=== PATIENT | male | born 1940 | race Caucasian/White ===

== ENCOUNTER 2016-09-12 07:51 | Outpatient (CLI) | payer MEDICARE, OTHER ==
[~2016-09-12] VITALS: Ht 190.5 cm; Wt 129.1 kg
--- NOTE | ~2016-09-12 | HEMODYNAMI ---
PATIENT:YOLY MACKEY MEDICAL RECORD: [id number] : 40 LOCATION:DDAISY ADMISSION DATE: 09/12/16 Generatedon:09/12/201610:50 Patient name: YOLY MACKEY Patient #: [id number] SSN: : 1940 Date of study: 09/12/2016 Page: Of Hemodynamic Procedure Report Patient Data Patient Demographics Procedure consent was obtained First Name: YOLY Gender: Male Last Name: NARENDRA : 1940 Patient #: [id number] Age: 76 year(s) Race: Unknown Additional ID: [id number] Contact details [address]: [address] [place] [address] State: [place] City: [place] Zip code: [address] Past Medical History Allergies: No known allergies Admission Admission Data Admission Date: 09/12/2016 Admission Time: 7:51 Lab Results Lab Result Date: 09/12/2016 Lab Result Time: 0:00 Biochemistry Name Units Result Min Max CK-MB ng/ml 2.7 --(---*)-- 0 3.6 Creatinine mg/dl 0.8 --(-*--)-- 0.6 1.3 Creatinine l 128 --(--*-)-- 21 215 Kinase Troponin l ng/ml 0.017 --(-*--)-- 0 0.06 CBC Name Units Result Min Max Hematocrit % 40.7 -*(----)-- 42 54 Hemoglobin g/dl 13.3 -*(----)-- 13.5 17.5 Procedure Procedure Types Cath Procedure Diagnostic Procedure LHC [facility] w/Coronaries FFR/IVUS Intra-Coronary IVUS Initial PCI Procedure Coronary Stent Initial Miscellaneous Procedures Moderate Sedation up to 30 minutes Procedure Description Procedure Date Procedure Date: 09/12/2016 Procedure Start Time: 10:25 Procedure End Time: 10:50 Procedure Staff Name Function Mario Palacio MD Performing Physician Shawn Martino RT Scrub Lennie Vásquez RN Nurse Paty Al RT Monitor Chepe Thurman RN Child Care Provider Procedure Data Cath Procedure Fluoroscopy Diagnostic fluoroscopy Total fluoroscopy Time: 3.7 time: 3.7 min min Diagnostic fluoroscopy Total fluoroscopy dose: 926 dose: 926 mGy mGy Contrast Material Contrast Material Type Amount (ml) Isovue 300 106 Entry Location Entry Primary Successful Side Size Upsize Upsize Entry Closure Succes sful Closure Location (Fr) 1 (Fr) 2 (Fr) Remarks Device Remarks Femoral Right 5 Fr 6 Fr Exoseal artery Short Estimated blood loss: 10 ml Diagnostic catheters Device Type Used For End Catheter Placement Cordis 5Fr Pigtail LV Angiography Catheter (MP) Cordis 5Fr JL 4.0 Left Coronary Catheter (MP) Angiography Cordis 5Fr 3DRC Catheter Right Coronary (MP) Angiography Procedure Complications No complications Procedure Medications Medication Administration Route Dosage Oxygen NC 2 l/min Lidocaine 2% added to field 20 Heparin Flush Bag added to field 2 bags (1000units/500ml NS) 0.9% NaCl I.V. 100 ml/hr Versed I.V. 1 mg Fentanyl I.V. 50 mcg Versed I.V. 1 mg Fentanyl I.V. 50 mcg Heparin Bolus I.V. 4000 units Hemodynamics Rest HGB: 13.3 (g/dl) Heart Rate: 52 (bpm) Snapshots Pre Cath Intra NCS Post Cath Vital Signs Time Heart Resp SPO2 NIBP (mmHg) Rhythm Pain Sedation Rate (ipm) (%) Status Level (bpm) 10:08:35 46 16 97 135/72(100) SB 0 (11) 10(A) , No pain 10:12:59 47 15 98 114/56(105) SB 0 (11) 10(A) , No pain 10:17:14 43 16 97 98/56(83) SB 0 (11) 10(A) , No pain 10:21:23 44 17 97 105/55(85) NSR 0 (11) 10(A) , No pain 10:25:31 41 16 94 94/62(79) NSR 0 (11) 9(A) , No pain 10:30:32 51 15 96 105/59(83) NSR 0 (11) 9(A) , No pain 10:34:36 46 15 98 106/60(79) NSR 0 (11) 9(A) , No pain 10:38:46 44 16 96 99/58(80) NSR 0 (11) 9(A) , No pain 10:42:56 47 17 98 111/55(84) NSR 0 (11) 10(A) , No pain 10:47:06 45 15 99 112/67(82) NSR 0 (11) 10(A) , No pain Medications Time Medication Route Dose Verified Delivered Reason Notes Effectiveness by by 10:07:20 Oxygen NC 2 Mario Buffie used for l/min Pia Vásquez RN procedure 10:07:27 Lidocaine 2% added 20ml Mario Mario for local to vial Pia Palacio MD anesthetic field 10:07:33 Heparin Flush added 2 Mario Mario used for Bag to bags Pia Palacio MD procedure (1000units/500ml field NS) 10:07:43 0.9% NaCl I.V. 100 Mario Buffie Per physician ml/hr Pia Vásquez RN 10:23:37 Versed I.V. 1 mg Mario Hogue for sedation Pia Vásquez RN 10:23:43 Fentanyl I.V. 50 Mario Buffie for sedation mcg Pia Vásquez RN 10:29:54 Versed I.V. 1 mg Mario Buffie for sedation Pia Vásquez RN 10:29:59 Fentanyl I.V. 50 Mario Perezie for sedation mcg Pia Vásquez RN 10:32:28 Heparin Bolus I.V. 4000 Marioamanuel Perezie for verifi ed units Pia Vásquez RN anticoagulation with dr palacio Procedure Log Time Note 9:52:07 Informed consent obtained and on chart 9:52:29 Diagnostic Cath status Elective 9:52:31 Time tracking: Regular hours 9:52:34 Plan of Care:Hemodynamics will remain stable., Cardiac rhythm will remain stable., Comfort level will be maintained., Respiratory function will remain adequate., Patient/ family verbilizes understanding of procedure., Procedure tolerated without complication., Recovers from procedure without complications.. 9:52:44 H&P Date Dictated: 09/12/2016 Within 30 days and on chart., H&P Addendum completed by physician on day of procedure. (MUST COMPLETE FOR ALL OUTPATIENTS). 9:53:46 Chepe Thurman RN sent for patient. Start room use. 9:57:30 Patient received from Pre/Post Procedure Room to CCL 2 Alert and oriented. Tansferred to table in Supine position. 9:57:31 Warm blankets applied, and migel hugger turned on for patient comfort. 9:57:31 Correct patient and procedure confirmed by team. 9:57:33 ECG and BP/O2 sat monitors applied to patient. 9:57:36 Full Disclosure recording started 10:07:20 Oxygen 2 l/min NC was administered by Lennie Vásquez RN; used for procedure; 10:07:25 Vital chart was started 10:07:27 Lidocaine 2% 20ml vial added to field was administered by Mario Palacio MD; for local anesthetic; 10:07:29 Rhythm: sinus bradycardia 10:07:31 Pre-procedure instructions explained to patient. 10:07:31 Pre-op teaching completed and patient verbalized understanding. 10:07:33 Heparin Flush Bag (1000units/500ml NS) 2 bags added to field was administered by Mario Palacio MD; used for procedure; 10:07:35 Family in patients room. 10:07:36 Patient NPO since Midnight. 10:07:43 0.9% NaCl 100 ml/hr I.V. was administered by Lennie Vásquez RN; Per physician; 10:09:14 Patient allergic to No known allergies 10:09:17 Is the patient allergic to Iodine/contrast media? No. 10:09:18 Is patient on blood thinner?Yes 10:09:37 ACC The patient was administered the following blood thiners within the last 24 hours: ACCPlavix 10:09:38 Patient diabetic? Yes. 10:09:39 If diabetic: On Metformin? Yes 10:09:41 If on Metformin: Last Dose? 09/10/2016 10:09:44 Previous problem with sedation/anesthesia? No ? 10:09:45 Snore? Yes 10:09:47 Sleep apnea? Yes 10:09:47 Deviated septum? No 10:09:48 Opens mouth fully? Yes 10:09:48 Sticks out tongue? Yes 10:09:50 Airway obstruction? No ? 10:09:53 Dentures? No ? 10:09:55 Pre procedure: right dorsailis pedis pulse 1+ Palpable, but thready & weak; easily obliterated 10:10:06 Pre procedure: right radial pulse 1+ Palpable, but thready & weak; easily obliterated 10:10:10 Patient pain scale 0/10 ?. 10:10:16 IV patent on arrival in left hand with 0.9% NaCl at [facility]. 10:11: Lab Result : Creatinine 0.8 mg/dl 10:11: Lab Result : Creatinine Kinase 128 l 10:11: Lab Result : CK-MB 2.7 ng/ml 10:11: Lab Result : Troponin l 0.017 ng/ml 10:: Lab Result : Hemoglobin 13.3 g/dl 10:11: Lab Result : Hematocrit 40.7 % 10:11:07 Lab results completed and on chart. 10:11:09 Right groin area was prepped with chlora-prep and draped in sterile fashion 10:11:10 Alarms reviewed by R. N. 10:11:13 Sharps counted by scrub and verified by R.N. 10:11:16 Use device set Femoral Dx 10:11:17 Acist Syringe opened to sterile field. 10:11:18 Bag Decanter opened to sterile field. 10:11:18 Medline Cath Pack opened to sterile field. 10:11:19 Terumo 5Fr [place] Sheath opened to sterile field. 10:11:19 St Jovi 260cm J .035 wire opened to sterile field. 10:11:20 Acist Hand Control opened to sterile field. 10:11:21 Acist Manifold opened to sterile field. 10:11:21 Diagnostic Infinity 5Fr Multipack catheter opened to sterile field. 10:11:22 Tegaderm 4 x 4 opened to sterile field. 10:14:04 Baseline sample Acquired. 10:14:44 Physician paged 10:22:00 Final Timeout: patient, procedure, and site verified with staff and physician. All members of the team are in agreement. 10:22:02 Right groin site verified by team. 10:22:05 Physical assessment completed. ASA score P 2 - A patient with mild systemic disease as per Mario Palacio MD. 10:22:08 Sedation plan: IV Moderate Sedation Versed, Fentanyl 10::37 Versed 1 mg I.V. was administered by Lennie Vásquez RN; for sedation; 10::43 Fentanyl 50 mcg I.V. was administered by Lennie Vásquez RN; for sedation; :25:37 Procedure started. 10:25:40 Local anesthetic to right femoral artery with Lidocaine 2% by Mario Palacio MD.INITIAL ACCESS ONLY 10:25:56 A 5 Fr sheath was inserted into the Right Femoral artery 10::38 A Cordis 5Fr Pigtail Catheter (MP) was advanced over the wire and used for LV Angiography. 10:27:16 LV gram done using DIALLO 10:27:20 EF : 30 % 10::23 Injector settings: Ml/sec: 10, Volume: 20, 10:27:25 Catheter removed. 10:27:52 A Cordis 5Fr JL 4.0 Catheter (MP) was advanced over the wire and used for Left Coronary Angiography. 10:29:14 Catheter removed. 10::25 A Cordis 5Fr 3DRC Catheter (MP) was advanced over the wire and used for Right Coronary Angiography. 10:29:54 Versed 1 mg I.V. was administered by Lennie Vásquez RN; for sedation; 10:29:59 Fentanyl 50 mcg I.V. was administered by Lennie Vásquez RN; for sedation; 10:30:31 Terumo 6Fr [place] Sheath opened to sterile field. 10:30:32 Carrera Whisper J 300cm 0.014 guide wire opened to sterile field. 10:30:32 29West BasixCompak Inflation Kit opened to sterile field. 10:30:49 Sheath upsized to a 6 Fr Short. 10:31:06 [place] Eagleye IVUS Catheter opened to sterile field. 10:31:33 Cordis 6FR XBLAD 4.0 guide catheter opened to sterile field. 10:31:56 6 Fr XBLAD 4.0 guide catheter was inserted over the wire 10:32:28 Heparin Bolus 4000 units I.V. was administered by Lennie Vásquez RN; for anticoagulation; verified with dr palacio 10:32:29 Whisper wire advanced. 10:33:52 IVUS catheter advanced over wire. 10:35:07 IVUS pass to LAD lesion performed. 10:35:08 IVUS catheter removed over wire. 10:41:39 Inflation Number: 1 A Biofreedom 3.0 x 14 stent (No Cost Implant) was prepped and advanced across the Mid LAD. The stent was deployed at 11 JODI for 0:06 (min:sec). 10:42:01 Stent catheter was removed intact over wire. 10:42:02 Wire removed. 10:42:02 Guide catheter removed. 10:42:11 Sheath removed intact; hemostasis achieved with Exoseal to the Right Femoral artery. 10:42:13 Procedure ended.(Physican Out) 10:42:26 Fluoroscopy time 03.70 minutes. 10:42:30 Fluoroscopy dose: 926 mGy 10:42:30 Flurop Dose total: 926 10:42:45 Contrast amount:Isovue 300 106ml. 10:42:47 Sharps counted by scrub and verified by R.N. 10:42:48 Insertion/operative site no bleeding no hematoma. 10:42:51 Post-op/insertion site Right Femoral artery dressed using a 4 x 4 and Tegaderm. 10:42:55 Post right femoral artery:stable, clean and dry 10:42:56 Post Procedure Pulses reassessed and unchanged 10:43:00 Post-procedure physical assessment completed. ASA score P 2 - A patient with mild systemic disease as per Mario Palacio MD. 10:43:02 Post procedure rhythm: unchanged. 10:43:04 Estimated blood loss: 10 ml 10:43:05 Post procedure instruction explained to patient.Patient verbalizes understanding. 10:43:06 Patient needs reinforcement of post procedure teaching. 10:43:25 Procedure type changed to Cath procedure, Diagnostic procedure, LHC, LHC w/Coronaries, FFR/IVUS, Intra-Coronary IVUS Initial, PCI procedure, Coronary Stent Initial, Miscellaneous Procedures, Moderate Sedation up to 30 minutes 10:43:28 Procedure and supply charges have been captured, reviewed, submitted and are correct. 10:43:34 Procedure Complication : No complications 10:43:37 See physician's report for complete and final results. 10:44:22 Cordis 6Fr Exoseal opened to sterile field. 10:49:48 Vital chart was stopped 10:49:51 Report given to Pre/Post Procedure Room. 10:49:55 Patient transfered to Pre/Post Procedure Room with Stretcher. 10:50:07 Procedure ended. 10:50:07 Full Disclosure recording stopped 10:50:11 End room use (Document Last) Intervention Summary Intervention Notes Time ActionType Lesion and Equipment Action# Pressure Duration Attributes Used 10:41:39 Place stent Mid LAD Biofreedom 1 11 00:06 3.0 x 14 stent (No Cost Implant) Device Usage Item Name Manufacture Quantity Catalog Hospital Part Current Minimal Lot# / Number Charge Number Stock Stock Serial# Code Acist Acist 1 05587 [id number] 207952 343298 20 Syringe Medical Systems Inc Bag Microtek 1 2002S 378267 08244 364638 5 Decanter Medical Inc. Medline Cardinal 1 [id number] 608971 47968 732056 5 Cath Pack Health Terumo 5Fr Terumo 1 [id number] 619330 026124 113844 [address] Jovi 1 011186 264682 491892 191277 30 260cm J .035 wire Acist Hand Acist 1 57022 225614 032860 703141 5 Control Medical Systems Inc Acist Acist 1 21143 818493 787404 581995 5 Manifold Medical Systems Inc Diagnostic Cardinal 1 [id number] 065712 92816 560097 30 Infinity Health 5Fr Multipack catheter Tegaderm 4 3M 1 1626W 211588 767513 301337 5 x 4 Cordis 5Fr Cardinal 1 199322 5 Pigtail Health Catheter (MP) Cordis 5Fr Cardinal 1 020479 5 JL 4.0 Health Catheter (MP) Cordis 5Fr Cardinal 1 835852 5 3DRC Health Catheter (MP) Terumo 6Fr Terumo 1 ONI775 232375 644429 224256 40 [place] Sheath Carrera Carrera 1 [id number] 053960 790576 669237 5 Whisper J Vascular 300cm 0.014 guide wire Merit Merit 1 EV7425 405373 365499 421756 15 Credit SesameflUdacity Medical Inflation Kit [place] 1 74616Y 614009 614783 812703 8 [place] Eagleye IVUS Catheter Cordis 6FR Cardinal 1 [id number] 020560 758353 232751 3 XBLAD 4.0 Health guide catheter Biofreedom Biosensors 1 [facility]2-3014 103758 722883 5 [id number] 3.0 x 14 [place] SA stent (No Cost Implant) Cordis 6Fr Cardinal 1 EX600 060999 739627 160313 10 [facility] Health Signature Audit [place] Stage Time Signature Unsigned Intra-Procedure 09/12/2016 Paty 10:50:27 AM Counts RT(R) Signatures Monitor : Paty Signature : Counts RT Date : Time : [address] [place] [address]
[2016-09-12] MEDS ORDERED: PLAVIX75 MG PO (08:08)
[2016-09-12] MEDS ORDERED: GLUCOPHAGE500 MG PO (08:12)
[2016-09-12] MEDS ORDERED: LISINOPRIL10 MG PO (08:13)
[2016-09-12] MEDS ORDERED: MOBIC7.5 MG PO (08:13)
[2016-09-12] MEDS ORDERED: VERELAN180 MG PO (08:13)
[2016-09-12] MEDS ORDERED: BAYER CHEWABLE81 MG PO (08:14)
[2016-09-12] MEDS ORDERED: LOVASTATIN40 MG PO (08:14)
[2016-09-12 08:15] VITALS: BP 137/61; Ht 190.5 cm; Wt 129.1 kg
[2016-09-12 08:36] LABS: BASOPHILS 0.1 % (0-2); EOSINOPHILS 2.2 % (0-7); HEMATOCRIT 40.7 % (42.0-54.0); HEMOGLOBIN 13.3 g/dL (13.5-17.5); IMMATURE GRANULOCYTES 0.1 % (0-5); LYMPHOCYTES 27.8 % (15-50); MCH 29.4 pg (26.0-34.0); MCHC 32.7 g/dL (31.0-37.0); MONOCYTES 9.6 % (2-11); NEUTROPHILS 60.2 % (40-80); PLATELET COUNT 232 10x3/uL (130-400); RBC 4.52 10x6/uL (4.20-6.10); RDW 14.1 % (11.5-14.5); WBC 7.4 10x3/uL (4.8-10.8)
[2016-09-12 09:08] LABS: CALC OSMOLALITY 280 mosm/kg (275-300); CALCIUM 8.5 mg/dL (8.5-10.1); CARBON DIOXIDE 23.6 mmol/L (21.0-32.0); CHLORIDE - SERUM 105 mmol/L (98-107); CKMB 2.7 U/L (0.0-3.6); CREATINE KINASE 128 UL (21-232); CREATININE - SERUM 0.8 mg/dL (0.6-1.3); GLUCOSE 114 mg/dL (74-106); SODIUM 139 mmol/L (136-145); UREA NITROGEN 18 mg/dL (7-18); eGFR NON AFRICAN AMERICAN > 90 mL/min (90-120)
[2016-09-12 09:10] LABS: TROPONIN-I < 0.017 ng/mL (0.000-0.060)
--- NOTE | 2016-09-12 11:12 | NUR ---
1100 RECEIVED PT FROM INDEPENDENT CROP CONSULTANT. PT DENIES ANY C/O AT THIS TIME. DRESSING TO RIGHT GROIN IS CDI, NO BLEEDING OR HEMATOMA NOTED. AREA IS SOFT AND NONTENDER. PEDAL PULSES PALPALBLE, CAP REFILL IS BRISK. AT BEDSIDE, CALL LIGHT IN REACH.
--- NOTE | 2016-09-12 11:23 | NUR ---
1115 RIGHT GROIN REMAINS SOFT AND NONTENDER, DRESSING CDI. PEDAL PULSES PALPABLE. DENIES ANY C/O CHEST DISCOMFORT. AT BEDSIDE. PO FLUIDS SERVED.
--- NOTE | 2016-09-12 12:05 | NUR ---
1145 PT HAS TOLERATED PO FLUIDS AND SANDWICH WITH NO C/O. DRESSING CDI, DENIES ANY CHEST DISCOMFORT, CALL LIGHT IN REACH. 1205 DRESSING CDI, DENIES ANY CHEST DISCOMFORT, WILL CONTINUE TO MONITOR.
--- NOTE | 2016-09-12 12:21 | NUR ---
1220 RIGHT GROIN DRESSING IS CDI, AREA IS SOFT AND NONTENDER. PEDAL PULSES PALPABLE, PT DENIES NEEDS AT THIS TIME. CALL LIGHT IN REACH.
--- NOTE | 2016-09-12 13:06 | NUR ---
1300 PT DENIES ANY C/O DRESSING TO RIGHT GROIN IS CDI, AREA SOFT AND NONTENDER. PEDAL PULSES PALPABLE. AT BEDSIDE.
--- NOTE | 2016-09-12 14:26 | NUR ---
1400 VSS, SINUS BRADYCARDIA ON MONITOR,. DENIES ANY C/O CHEST DISCOMFORT, RIGHT GROIN DRESSING IS STABLE. AT BEDSIDE, CALL LIGHT IN REACH.
--- NOTE | 2016-09-12 14:55 | NUR ---
1440 HOB ELEVATED 45 DEGRESS, GROIN REMAINS STABLE. 1455 HOB UP TO 90 DEGREES, IV DC'D WITH CATH INTACT.
--- NOTE | 2016-09-12 15:02 | OP ---
PATIENT NAME: YOLY MACKEY MEDICAL RECORD: [id number] :40 LOCATION:D.CAT ADMISSION DATE: SURGEON: BILL BRANNON MD DATE OF OPERATION: 09/12/2016 PROCEDURES: 1. PTCA stent LAD. 2. Left heart catheterization. 3. Selective coronary angiography. 4. Left ventriculogram. 5. Intravascular ultrasound. PROCEDURE IN DETAIL: After informed consent was obtained and after a detailed explanation of the risks, benefits as well as alternative therapies, the patient elected to proceed with angiogram and angioplasty. The right femoral area was prepped and draped in normal sterile fashion. The right femoral artery was cannulated via modified Seldinger technique with placement of 6-Azeri sheath. All catheters exchanged through this sheath. FINDINGS: The left ventriculogram was performed in standard 30-degree DIALLO view, reveals good cardiac wall motion throughout all segments. Overall ejection fraction estimated 60%. SELECTIVE CORONARY ANGIOGRAPHY: 1. Left main showed no significant angiographic disease. 2. Left anterior descending has a 70% stenosis in the mid vessel confirmed by intravascular ultrasound. 3. Left circumflex has mild irregularities, but no flow-limiting stenosis. 4. Right coronary has mild irregularities, but no flow-limiting stenosis. PTCA STENT OF THE LAD: The stent used was a 3.0 x 15 mm BioFreedom. Result was 0% residual stenosis. OVERALL IMPRESSION: Successful percutaneous transluminal coronary angioplasty stent of the left anterior descending going from 70% initial stenosis confirmed by intravascular ultrasound to 0% residual stenosis. TRANSINT:[id number] Voice Confirmation ID: [id number] DOCUMENT ID: [id number] BILL BRANNON MD at 1502 CC: [id number] DICTATION DATE: 09/12/16 1107 AUTOMOBILE DRIVERS: 09/12/16 1400 REG [facility] [address] [place] [address]
--- NOTE | 2016-09-12 15:02 | HP ---
PATIENT: YOLY MACKEY MEDICAL RECORD: [id number] ACCOUNT: [id number] LOCATION:JOE : 40 ADMISSION DATE: 09/12/16 HISTORY AND PHYSICAL EXAMINATION DATE OF SERVICE: 09/12/2016 ADMITTING DIAGNOSES: 1. Angina. 2. Abnormal nuclear stress test. 3. Hypertension. 4. Hyperlipidemia. 5. Noninsulin-dependent diabetes. 6. Chronic NSAID use, meloxicam. HISTORY OF PRESENT ILLNESS: This is a gentleman with no previous cardiovascular history, began having chest pain, chest discomfort, underwent stress testing revealing severe reversibility. He is now brought for cardiac catheterization. No cardiovascular history. No history of malignancies, stroke or bleeding problems. He is on chronic NSAID therapy. PHYSICAL EXAMINATION: GENERAL APPEARANCE: Well-nourished, well-developed, appears stated age. Level of distress, comfortable. PSYCHIATRIC: Mental status, alert, normal affect. Orientation, oriented to time, place and person. EYES: Lids and conjunctiva, noninjected. No discharge, no pallor. ENT: Lips, teeth, gums, normal dentition. Oropharynx, no cyanosis, no pallor. NECK: Carotid arteries, bilateral normal upstroke, no bruits, no thrills. JUGULAR VEINS: No jugular venous pressure or distention. CERVICAL LYMPH NODES: Nontender, nonenlarged. THYROID: Not enlarged. Nontender. No nodules. LUNGS: Respiratory effort, unlabored. CHEST: Normal curvature. No thoracic deformity. No chest wall tenderness. Percussion, resonant. Auscultation, clear. No wheezes, no rales, no rhonchi. CARDIOVASCULAR: Precordial exam, nondisplaced. No heaves or pericardial thrills. Rate and rhythm, regular. Heart sounds, normal S1, normal S2. No S3, no gallop, no rub. Systolic murmur, not heard. Diastolic murmur, not heard. EXTREMITIES: No cyanosis, no edema. Peripheral pulses, full and equal in all extremities, except as noted. No bruits appreciated. ABDOMEN: Soft, nondistended. Normal aorta. No bruit. Nontender. No masses. Liver, nontender, no hepatomegaly. Spleen, nontender, no splenomegaly. MUSCULOSKELETAL: No joint tenderness. No joint swelling. No erythema. NEUROLOGICAL: Normal gait, normal strength, normal tone. SKIN: Warm and dry. REVIEW OF SYSTEMS: The patient reports easy bruising but reports no swollen glands. The patient reports no fever, no night sweats, no significant weight gain, no significant weight loss. No significant exercise tolerance. The patient reports no dry eyes, no irritation, no vision change. Patient reports no difficulty hearing and no ear pain. Patient reports no frequent nose bleeds or nose and sinus problems. Patient reports on arm pain on exertion. No shortness of breath while lying down. No history of heart murmur. Patient reports no cough, no wheezing or coughing up blood. Patient reports no abdominal pain, no vomiting. Normal appetite. No diarrhea and not vomiting HISTORY AND PHYSICAL [id number] YOLY MACKEY blood. No nausea and no constipation. Patient reports no incontinence. No difficulty urinating. No hematuria. No increased frequency. Patient reports no muscle aches. No weakness, no arthralgias, no back pain. No swelling of the extremities. Patient reports no abnormal mole, no jaundice, no rashes. Reports no loss of consciousness. No weakness and no numbness. No seizures, dizziness, or headaches. The patient reports no depression, no sleep disturbance, feeling safe in a relationship and no alcohol abuse. Patient reports on fatigue. Reports no runny nose or sinus pressure. No itching, no hives, and no frequent sneezing. OVERALL IMPRESSION: Anginal symptomatology with significantly abnormal nuclear stress test, most likely has hemodynamically significant coronary artery disease. We will proceed with coronary angiography. Further care depends upon findings of the angiography. TRANSINT:[id number] Voice Confirmation ID: [id number] DOCUMENT ID: [id number] BILL BRANNON MD at 1502 CC: [id number] DICTATION DATE: 09/12/16 1005 NAIL FEEDER: 09/12/16 1042 REG [facility] [address] [place] [address]
--- NOTE | 2016-09-12 15:32 | NUR ---
1515 PT HAS VOIDED QS, DENIES ANY C/O. RIGHT GROIN REMAINS STABLE WITH NO BLEEDING OR HEMATOMA NOTED. REVIEWED DC INSTRUCTIONS WITH PT AND WHO VERBALIZE UNDERSTANDING. PLAVIX PRESCRIPTION TO PT. PT ESCORTED TO PRIVATE AUTO VIA WC BY NURSE WITH DRIVING HIM HOME.
== END 2016-09-12 15:15 | disposition home or self-care (01) ==
LOC: D.CATH 07:51
PROVIDERS: Internal Medicine Interventional Cardiology
DX: I20.9 Angina pectoris, unspecified (principal); R94.30 Abnormal result of cardiovascular function study, unspecified; I10 Essential (primary) hypertension; E78.5 Hyperlipidemia, unspecified; E11.9 Type 2 diabetes mellitus without complications; Z01.812 Encounter for preprocedural laboratory examination; Z00.6 Encounter for examination for normal comparison and control in clinical research program
CPT/HCPCS: 93458; 92978; C9600

== ENCOUNTER → 2018-10-01 12:07 | Outpatient (CLI) | payer MEDICARE, OTHER ==
[2016-09-12 08:15] VITALS: BMI 35.5
[~2018-10-01 12:07] MED LIST: BAYER CHEWABLE81 MG PO; GLUCOPHAGE500 MG PO; LISINOPRIL10 MG PO; LOVASTATIN40 MG PO; MOBIC7.5 MG PO; PLAVIX75 MG PO; VERELAN180 MG PO
--- NOTE | 2018-10-05 16:51 | ST ---
PATIENT:YOLY MACKEY MEDICAL RECORD: [id number] SEX: M LOCATION:[facility] ORDER #: ADMISSION DATE: 10/01/18 AGE OF PATIENT: 78 REFERRING PHYSICIAN: INTERPRETING PHYSICIAN: BILL BRANNON MD DATE OF SERVICE: 10/01/2018 PROCEDURE: Nuclear Stress Test. INDICATION: Angina, coronary artery disease, shortness of breath, hypertension, and hyperlipidemia. DESCRIPTION OF PROCEDURE: He was exercised on standard Lexiscan protocol with 28 mCi of sestamibi injected at peak stress, 8 mCi used previously for rest images. FINDINGS: Gated SPECT reveals a preserved ejection fraction at 52% with decreased thickening and brightening throughout the inferior segments. SPECT imaging: Cardiolite was used for myocardial perfusion agent. There is a fixed perfusion defect inferoapically compatible with a previous inferoapical myocardial infarction. There is no evidence of reversible ischemia. In fact there is improvement in this defect with stress showing reverse redistribution. The remaining segments are with homogeneous uptake at rest and stress. OVERALL IMPRESSION: This is a minimally abnormal nuclear stress test only showing a fixed perfusion defect inferiorly. No ongoing ischemia and preserved ejection fraction of 52%. Continue medical management of the coronary artery disease and cardiac risk factors. TRANSINT:[id number] Voice Confirmation ID: [id number] DOCUMENT ID: [id number] BILL BRANNON MD at 1651 CC: [id number] DICTATION DATE: 10/02/18 1616 LIBRARY CLERICAL ASSISTANT: 10/03/18 0020 DEP CLI 10/01/18 [facility] [address] [place] [address]
== END | disposition home or self-care (01) ==
LOC: D.HCCARDIO 09-17 11:30
PROVIDERS: ATTEND Internal Medicine Interventional Cardiology
DX: R07.9 Chest pain, unspecified (principal)

== ENCOUNTER 2018-11-06 10:15 | Inpatient (IN) | payer MEDICARE, OTHER ==
[~2018-11-06] VITALS: Ht 190.5 cm; Wt 129.5 kg
--- NOTE | ~2018-11-06 | HEMODYNAMI ---
PATIENT:YOLY MACKEY MEDICAL RECORD: [id number] : 40 [facility] [id number] ADMISSION DATE: 11/06/18 Generatedon:11/07/201814:20 Patient name: YOLY MACKEY Patient #: [id number] SSN: : 1940 Date of study: 11/07/2018 Page: Of Hemodynamic Procedure Report Patient Data Patient Demographics First Name: YOLY Gender: Male Last Name: NARENDRA : 1940 Middle Initial: ANASTASIA Age: 78 year(s) Patient #: [id number] Race: Additional ID: [id number] Contact details Address: [address] [place] [address] State: [place] City: [place] Zip code: [address] Past Medical History Allergies: No allergy information Admission Admission Data Admission Date: 11/06/2018 Admission Time: 15:55 Room #: [facility] Height (in.): 73 BSA: 2.51 (m2) Height (cm.): 185.42 BMI: 37.73 (kg/m2) Weight (lbs.): 286 Weight (kg.): 129.73 Lab Results Lab Result Date: 11/06/2018 Lab Result Time: 0:00 Biochemistry Name Units Result Min Max BUN mg/dl 20 --(----)*- 7 18 Creatinine mg/dl 0.9 --(-*--)-- 0.6 1.3 eGFR ml/min 87 -*(----)-- 90 120 NONAFRICAN CBC Name Units Result Min Max Hematocrit % 39.7 -*(----)-- 42 54 Hemoglobin g/dl 13.2 -*(----)-- 13.5 17.5 Procedure Procedure Types Cath Procedure Diagnostic Procedure PPM/ICD PPM Dual Implant Sedation Charges Moderate Sedation up to 30 minutes Procedure Description Procedure Date Procedure Date: 11/07/2018 Procedure Start Time: 13:44 Procedure End Time: 14:18 Procedure Staff Name Function Pito Oglesby MD Performing Physician John Fernández MD Assisting physician Kenroy Espinoza RT Monitor French Bran RN Nurse Marilyn Gifford RT Scrub Procedure Data Cath Procedure Fluoroscopy Diagnostic fluoroscopy Total fluoroscopy Time: 3.3 time: 3.3 min min Diagnostic fluoroscopy Total fluoroscopy dose: 187 dose: 187 mGy mGy Estimated blood loss: 10 ml Procedure Complications No complications Procedure Medications Medication Administration Route Dosage 0.9% NaCl I.V. 100 ml/hr Oxygen etCO2 Nasal cannula 4 l/min Lidocaine 1% with added to field 20 ml Epi Ancef Irrigation 1 g (1gm/500ml NS) Ancef (1Gm/50ml NS) I.V.P.B 1 g Versed I.V. 2 mg Fentanyl I.V. 100 mcg Versed I.V. 1 mg Fentanyl I.V. 25 mcg Hemodynamics Rest BSA: 2.51 (m2) HGB: 13.2 (g/dl) O2 Consumption: Estimated: 267.72 (ml/min) O2 Co nsumption indexed: Estimated:106.66 (ml/min/m) Heart Rate: 49 (bpm) Snapshots Pre Cath Intra NCS Post Cath Vital Signs Time Heart Resp SPO2 etCO2 NIBP (mmHg) Rhythm Pain Sedation Rate (ipm) (%) (mmHg) Status Level (bpm) 13:31:23 62 18 94 29.2 156/82(114) NSR 0 (11) 10(A) , No pain 13:36:41 47 15 95 37.5 149/69(127) NSR 0 (11) 10(A) , No pain 13:41:01 47 15 94 36 134/75(111) NSR 0 (11) 10(A) , No pain 13:45:13 300 18 92 35.2 140/77(115) NSR 0 (11) 9(A) , No pain 13:49:27 43 13 93 42.7 133/82(118) NSR 0 (11) 9(A) , No pain 13:53:33 65 18 93 41.9 140/88(104) NSR 0 (11) 9(A) , No pain 13:57:49 74 18 92 41.9 141/71(107) NSR 0 (11) 9(A) , No pain 14:01:48 89 10 92 40.5 111/89(99) NSR 0 (11) 9(A) , No pain 14:06:55 54 14 92 36.7 131/71(102) Paced 0 (11) 9(A) , No pain 14:11:54 57 13 92 37.5 134/84(107) Paced 0 (11) 9(A) , No pain 14:16:04 61 16 93 33 142/81(112) Paced 0 (11) 10(A) , No pain Medications Time Medication Route Dose Verified Delivered Reason Notes Ef fectiveness by by 13:35:23 0.9% NaCl I.V. 100 French French Per ml/hr Yina Bran physician RN RN 13:35:40 Oxygen etCO2 Nasal 4 French French for low 02 cannula l/min Yina Bran satroyal RN RN 13:35:57 Lidocaine added to 20 ml French French for local 1% with Epi field Yina Bran anesthetic RN RN 13:36:25 Ancef Topical(added 1 g French French used for Irrigation to the field) Yina Bran procedure (1gm/500ml RN RN NS) 13:36:42 Ancef I.V.P.B 1 g French French Per (1Gm/50ml Yina Bran physician NS) RN RN 13:40:41 Versed I.V. 2 mg French French for Lorigan Lorigan sedation RN RN 13:40:49 Fentanyl I.V. 100 French French for mcg Lorigan Lorigan sedation RN RN 13:44:24 Versed I.V. 1 mg French French for Lorigan Lorigan sedation RN RN 13:47:22 Fentanyl I.V. 25 French French for mcg Lorigan Lorigan sedation RN brim welt sewing machine operator Log Time Note 12:45:13 Kenroy Espinoza RT(R) sent for patient. Start room use. 12:47:07 Patient Weight : 286 lbs 12:47:07 Patient Height : 73 inches 12:47:14 Time tracking: Regular hours (M-F 7:00 - 5:00) 12:47:18 Plan of Care:Hemodynamics will remain stable., Cardiac rhythm will remain stable., Comfort level will be maintained., Respiratory function will remain adequate., Patient/ family verbilizes understanding of procedure., Procedure tolerated without complication., Recovers from procedure without complications.. 13:13:46 Patient received from Med II to CCL 3 Alert and oriented. Tansferred to table in Supine position. 13:13:50 Warm blankets applied, and migel hugger turned on for patient comfort. 13:13:51 Correct patient and procedure confirmed by team. 13:13:52 ECG and BP/O2 sat monitors applied to patient. 13:22:17 Vital chart was started 13:22:19 Baseline sample Acquired. 13:22:25 Rhythm: sinus bradycardia 13:22:26 Full Disclosure recording started 13:22:27 Pre-procedure instructions explained to patient. 13::27 Pre-op teaching completed and patient verbalized understanding. 13:22:31 Family in patients room. 13:23:37 Patient allergic to No allergy information 13:23:39 Patient diabetic? Yes. 13:23:40 If diabetic: On Metformin? No 13:23:42 Is the patient allergic to Iodine/contrast media? No. 13:23:43 Is patient on blood thinner?Yes 13:23:47 ACC The patient was administered the following blood thiners within the last 24 hours: Coumadin 13:23:55 INR 2.1 13:23:59 Previous problem with sedation/anesthesia? No ? 13:24:00 Snore? Yes 13:24:01 Sleep apnea? Yes 13:24:02 Deviated septum? No 13:24:03 Opens mouth fully? Yes 13:24:04 Sticks out tongue? Yes 13:24:07 Airway obstruction? No ? 13:24:09 Dentures? Yes IN 13:24:14 Patient pain scale 0/10 ?. 13:24:20 IV patent on arrival in left antecubital with 0.9% NaCl at KVO. 13:24:21 Lab results completed and on chart. 13:24:24 Left chest area was prepped with chlora-prep and draped in sterile fashion 13:24:25 Alarms reviewed by R. N. 13:24:25 Sharps counted by scrub and verified by R.N. 13:24:32 Use device set MARGARET PPM 13:24:34 2-0 Ticron Multipack ([id number]) opened to sterile field. 13:24:34 3-0 Vicryl Single Pack [id number] opened to sterile field. 13:24:35 5-0 Monocryl PS2 [id number] opened to sterile field. 13:24:35 Cautery Tip Head Teller opened to sterile field. 13:24:35 Cautery Pushbutton Pencil opened to sterile field. 13:24:36 Mepilex Dressing ([id number]) opened to sterile field. 13:24:38 Immobilizer Extra Large opened to sterile field. 13:32:[address] Generator [id number] opened to sterile field. 13:32:26 Medtronic 4574-53 PPM Lead opened to sterile field. 13:32:36 Medtronic 4074-58 PPM Lead opened to sterile field. 13:34:41 Medtronic inside technical sales representative CHEYENNE GILL present for procedure. 13:35:00 Pre sharps counted by scrub and verified by RN: Sutures: 7; Sponges: 5; Stick needles: 2; Skin needles: 2; Blade: 1; Cautery: 1 13:35:08 Grounding pad site Left thigh. 13:35:09 Grounding pad site free from injury. 13:35:23 0.9% NaCl 100 ml/hr I.V. was administered by French Bran RN; Per physician; 13:35:40 Oxygen 4 l/min etCO2 Nasal cannula was administered by French Bran RN; for low 02 sats; 13:35:57 Lidocaine 1% with Epi 20 ml added to field was administered by French Bran RN; for local anesthetic; 13:36:25 Ancef Irrigation (1gm/500ml NS) 1 g Topical(added to the field) was administered by French Bran RN; used for procedure; 13:36:42 Ancef (1Gm/50ml NS) 1 g I.V.P.B was administered by French Bran RN; Per physician; 13:38:54 Baseline sample Acquired. 13:39:03 Patient NPO since Midnight. 13:39:29 --------ALL STOP TIME OUT------ 13:39:29 Final Timeout: patient, procedure, and site verified with staff and physician. All members of the team are in agreement. 13:39:33 Left chest site verified by team. 13:39:37 Fire Safety Assessment: A--An alcohol-based skin anteseptic being used preoperatively., C--Open oxygen or nitrous oxide is being used., D--An ESU, laser, or fiber-optic light is being used. 13:39:40 Physical assessment completed. ASA score P 2 - A patient with mild systemic disease as per Pito Oglesby MD. 13:39:44 Sedation plan: IV Moderate Sedation Medication:Versed, Fentanyl 13:40:41 Versed 2 mg I.V. was administered by French Bran RN; for sedation; 13:40:49 Fentanyl 100 mcg I.V. was administered by French Bran RN; for sedation; 13:42:23 Procedure started. 13:44:07 Lidocaine 1% w/epi was administered to left subclavicular area by John Fernández MD . 13:44:10 Incision made to left subclavicular area. 13:44:24 Versed 1 mg I.V. was administered by French Bran RN; for sedation; 13:47:22 Fentanyl 25 mcg I.V. was administered by French Bran RN; for sedation; 13:47:42 Generator pocket made/opened. 13:47:53 Left subclavian vein accessed with 9Fr Peel Away Sheath. 13:49:35 Ventricular lead inserted and advanced. 13:50:52 Ventricular lead positioned. 13:51:19 Ventricular lead tested. 13:54:08 Peel-a-way sheath was split and removed. 13:55:18 Left subclavian vein accessed with 7Fr Peel Away Sheath. 13:55:38 Atrial lead inserted and advanced. 13:55:44 Atrial lead positioned. 13:56:21 Atrial lead tested. 14:03:33 Peel-a-way sheath was split and removed. 14:03:39 PPM Dual was attached to lead(s) and inserted into pocket. 14:04:41 Atrial lead attachment was completed with 2-0 ticron. 14:04:48 Ventricular lead attachment was completed with 2-0 ticron. 14:05:15 Generator was sutured in place with 2-0 ticron. 14:05:20 Device pocket was irrigated with Ancef. 14:12:43 Subcutaneous closure was completed with 3-0 vicryl. 14:12:48 Skin closure was completed with 5-0 monocryl. 14:14:38 Parameters--Atrial P/R Wave: 2.1mV. Current: ?mA; Threshold: .4V; Impedence: 546OHMS. 14:14:51 Parameters--Ventricular P/R Wave: 6.4mV. Current: ?mA; Threshold: .4V; Impedence: 1026OHMS. 14:15:34 Procedure ended.(Physican Out) 14:16:05 Lt Chest incision was dressed with Mepilex dressing. 14:16:24 Fluoroscopy time 03.30 minutes. 14:16:30 Fluoroscopy dose: 187 mGy 14:16:30 Flurop Dose total: 187 14:16:46 Dose Area Product 187 mGy/cm. 14:16:50 Sharps counted by scrub and verified by R.N. 14:16:56 Post-procedure physical assessment completed. ASA score P 2 - A patient with mild systemic disease as per Pito Oglesby MD. 14:17:01 Post procedure rhythm: sinus bradycardia, paced 14:17:03 Estimated blood loss: 10 ml 14:17:04 Post procedure instruction explained to patient.Patient verbalizes understanding. 14:17:05 Patient needs reinforcement of post procedure teaching. 14:17:35 Procedure type changed to Cath procedure, Diagnostic procedure, PPM/ICD, PPM Dual Implant, Sedation Charges, Moderate Sedation up to 30 minutes 14:17:48 Procedure and supply charges have been captured, reviewed, submitted and are correct. 14:17:50 Procedure Complication : No complications 14:17:53 Vital chart was stopped 14:17:53 See physician's report for complete and final results. 14:17:56 Report given to [facility] II. 14:17:59 Patient transfered to Med II with Bed. 14:18:00 Procedure ended. 14:18:00 Full Disclosure recording stopped 14:18:06 End room use (Document Last) Device Usage Item Name Manufacture Quantity Catalog Hospital Part Current Minima l Lot# / Serial# Number Charge Number Stock Stock Code 2-0 Ticron Ethicon 3 [id number] 5 Multipack ([id number]) 3-0 Vicryl Ethicon 1 [id number] 038962 855072 398970 5 Single Pack [id number] 5-0 Monocryl Ethicon 1 [id number] 465471 859092 646408 5 PS2 Y495G Cautery Tip Microtek 1 [id number] 280423 196436 747897 5 Head Teller [employer] Cautery Microtek 1 [id number] 774164 58632 045835 5 Pushbutton Medical Inc. Pencil Mepilex Cardinal 1 369186 517707 097951 130164 5 Dressing Health (939941) Immobilizer Cardinal 1 [id number] 224411 749825 277492 5 Extra Large Health Medtronic Medtronic 1 [id number] 457618 4018029 259591 [id number] EXP: Generator 03/16/2020 [id number] Medtronic Medtronic 1 4574-53 285413 837672 594257 5 [id number] 4574-53 PPM EXP: Lead 05/15/2020 [id number] Medtronic Medtronic 1 4074-58 502379 627638 216067 5 [id number] 4074-58 PPM EXP:01/23/2020 Lead [id number] Signature Audit [place] Stage Time Signature Unsigned Intra-Procedure 11/07/2018 Marilyn Gifford 2:20:29 PM RT(R) Signatures Performing Physician : Signature : Pito Oglesby MD Date : Time : Monitor : Kenroy Espinoza RT Signature : Date : Time : Nurse : French rBan Signature : RN Date : Time : [place] [address] [place] [address]
--- NOTE | ~2018-11-06 | HEMODYNAMI ---
PATIENT:YOLY MACKEY MEDICAL RECORD: [id number] : 40 LOCATION:D.CAT ADMISSION DATE: 11/06/18 Generatedon:11/06/201812:19 Patient name: YOLY MACKEY Patient #: [id number] SSN: : 1940 Date of study: 11/06/2018 Page: Of Hemodynamic Procedure Report Patient Data Patient Demographics Procedure consent was obtained First Name: YOLY Gender: Male Last Name: NARENDRA : 1940 [facility] Initial: ANASTASIA Age: 78 year(s) Patient #: [id number] Race: Additional ID: [id number] Contact details Address: [address] [place] [address] State: [place] City: [place] Zip code: [address] Past Medical History Allergies: No known allergies Admission Admission Data Admission Date: 11/06/2018 Admission Time: 10:15 Height (in.): 73 BSA: 2.51 (m2) Height (cm.): 185.42 BMI: 37.73 (kg/m2) Weight (lbs.): 286 Weight (kg.): 129.73 Lab Results Lab Result Date: 11/06/2018 Lab Result Time: 0:00 Biochemistry Name Units Result Min Max BUN mg/dl 20 --(----)*- 7 18 Creatinine mg/dl 0.9 --(-*--)-- 0.6 1.3 eGFR ml/min 87 -*(----)-- 90 120 NONAFRICAN CBC Name Units Result Min Max Hematocrit % 39.7 -*(----)-- 42 54 Hemoglobin g/dl 13.2 -*(----)-- 13.5 17.5 Procedure Procedure Types Cath Procedure Diagnostic Procedure Cardioversion External Procedure Description Procedure Date Procedure Date: 11/06/2018 Procedure Start Time: 12:06 Procedure End Time: 12:15 Procedure Staff Name Function Mario Palacio MD Performing Physician Marilyn Gifford RT Monitor Kenroy Espinoza RT Monitor Chepe Thurman RN Nurse Mustapha Garcia CRNA Additional personnel Procedure Data Cath Procedure Fluoroscopy Diagnostic fluoroscopy Total fluoroscopy Time: 0 time: 0 min min Diagnostic fluoroscopy Total fluoroscopy dose: 0 dose: 0 mGy mGy Estimated blood loss: 0 ml Procedure Complications No complications Hemodynamics Rest BSA: 2.51 (m2) O2 Consumption: Estimated: 259.34 (ml/min) O2 Consumption indexed : Estimated:103.32 (ml/min/m) Heart Rate: 40 (bpm) Snapshots Pre Cath Intra NCS Post Cath Vital Signs Time Heart Resp SPO2 etCO2 NIBP (mmHg) Rhythm Pain Sedation Rate (ipm) (%) (mmHg) Status Level (bpm) 12:01:39 40 21 94 0 136/68(92) NSR (Missing) 10(A) 12:05:53 35 24 95 0 135/72(103) NSR (Missing) 10(A) 12:10:48 49 21 12.7 124/78(92) NSR (Missing) 10(A) 12:13:25 43 21 95 20.3 139/83(112) NSR (Missing) 10(A) Procedure Log Time Note 11:35:02 Chepe Thurman RN sent for patient. Start room use. 11:35:02 Informed consent obtained and on chart 11:35:38 Time tracking: Regular hours (M-F 7:00 - 5:00) 11:35:41 Plan of Care:Hemodynamics will remain stable., Cardiac rhythm will remain stable., Comfort level will be maintained., Respiratory function will remain adequate., Patient/ family verbilizes understanding of procedure., Procedure tolerated without complication., Recovers from procedure without complications.. 11:35:48 Patient allergic to No known allergies 11:36:08 Patient Weight : 286 lbs 11:36:12 Patient Height : 73 inches 11:50:54 Patient arrived from Pre/Post Procedure Room to [facility] 3. Patient remains on bed/stretcher for procedure. 11:50:56 Warm blankets applied, and migel hugger turned on for patient comfort. 11:50:56 Correct patient and procedure confirmed by team. 11:50:57 ECG and BP/O2 sat monitors applied to patient. 11:52:28 H&P Date Dictated: 10/24/2018 Within 30 days and on chart., H&P Addendum completed by physician on day of procedure. (MUST COMPLETE FOR ALL OUTPATIENTS). 11:52:28 Pre-procedure instructions explained to patient. 11:52:28 Pre-op teaching completed and patient verbalized understanding. 11:52:30 Family in patients room. 11:52:32 Patient NPO since Midnight. 11:52:34 Is the patient allergic to Iodine/contrast media? No. 11:52:35 Is patient on blood thinner?Yes 11:52:38 ACC The patient was administered the following blood thiners within the last 24 hours: Coumadin 11:52:39 Patient diabetic? Yes. 11:52:40 If diabetic: On Metformin? No 11:52:42 Previous problem with sedation/anesthesia? No ? 11:52:43 Snore? Yes 11:52:44 Sleep apnea? Yes 11:52:45 Deviated septum? No 11:52:47 Opens mouth fully? Yes 11:52:51 Sticks out tongue? Yes 11:53:41 Airway obstruction? No ? 11:53:45 Dentures? Yes in 11:53:49 Patient pain scale 0/10 ?. 11:54:06 IV patent on arrival in left hand with 0.9% NaCl at [facility]. 11:54:32 Lab Result : BUN 20 mg/dl 11:54:32 Lab Result : Creatinine 0.9 mg/dl 11:54:32 Lab Result : eGFR NONAFRICAN 87 ml/min 11:54:32 Lab Result : Hematocrit 39.7 % 11:54:32 Lab Result : Hemoglobin 13.2 g/dl 11:55:59 Lab results completed and on chart. 11:56:09 Alarms reviewed by R. N. 11:56:09 Sharps counted by scrub and verified by R.N. 11:57:35 Quick Combo opened to sterile field. 12:00:20 Vital chart was started 12:00:21 Baseline sample Acquired. 12:00:31 Rhythm: atrial fibrillation 12:00:33 Full Disclosure recording started 12:00:43 Mustapha Garcia CRNA present and monitoring patient for TIVA. 12:06:21 --------ALL STOP TIME OUT------ 12:06:21 Final Timeout: patient, procedure, and site verified with staff and physician. All members of the team are in agreement. 12:06:32 Physical assessment completed. ASA score P 2 - A patient with mild systemic disease as per Mario Palacio MD. 12:06:35 Sedation plan: TIVA Medication:Propofol 12:06:47 Procedure started. 12:06:49 ------Cardioversion------ 12:06:50 Quick combo pads placed on patients chest and back. 12:09:31 Defibrillator synced and charged to 275 Joules. 12:09:45 Shock delivered. 12:10:20 Unsuccessful cardioversion. 12:10:38 Procedure ended.(Physican Out) 12:11:40 Fluoroscopy time 00.00 minutes. 12:11:42 Fluoroscopy dose: 0 mGy 12:11:42 Flurop Dose total: 0 12:11:59 Sharps counted by scrub and verified by R.N. 12:12:08 Post-procedure physical assessment completed. ASA score P 2 - A patient with mild systemic disease as per Mario Palacio MD. 12:12:46 Estimated blood loss: 0 ml 12:12:47 Post procedure instruction explained to patient.Patient verbalizes understanding. 12:12:48 Patient needs reinforcement of post procedure teaching. 12:13:01 Procedure and supply charges have been captured, reviewed, submitted and are correct. 12:13:03 Procedure Complication : No complications 12:15:00 Vital chart was stopped 12:15:01 See physician's report for complete and final results. 12:15:21 Report given to Pre/Post Procedure Room. 12:15:24 Patient transfered to Pre/Post Procedure Room with Bed. 12:15:27 Procedure ended. 12:15:27 Full Disclosure recording stopped 12:15:32 End room use (Document Last) Device Usage Item Manufacture Quantity Catalog Hospital Part Current Minimal Lot# / Name Number Charge Number Stock Aissatou boland# Code [employer] 1 [id number] Combo Signature Audit [place] Stage Time Signature Unsigned Intra-Procedure 11/06/2018 Marilyn Gifford 12:18:56 PM RT(R) Signatures Performing Physician : Signature : Mario Palacio MD Date : Time : Monitor : Marilyn Gifford Signature : RT Date : Time : Monitor : Kenroy Madison RT Signature : Date : Time : Nurse : Chepe Thurman RN Signature : Date : Time : [address] [place] [address]
[2018-11-06] MEDS ORDERED: MULTI-DAY VITAM1 TAB PO (10:39)
[2018-11-06] MEDS ORDERED: PRAVACHOL40 MG PO (10:40)
[2018-11-06] MEDS ORDERED: NORVASC10 MG PO (10:41)
[2018-11-06] MEDS ORDERED: COUMADIN5 MG PO (10:42)
[2018-11-06] MEDS ORDERED: BETAPACE 80 MG80 MG PO (10:42)
[2018-11-06 10:47] VITALS: BP 120/84; BMI 35.6
[2018-11-06 11:04] LABS: BASOPHILS 0.1 % (0-2); EOSINOPHILS 2.2 % (0-7); HEMATOCRIT 39.7 % (42.0-54.0); HEMOGLOBIN 13.2 g/dL (13.5-17.5); IMMATURE GRANULOCYTES 0.3 % (0-5); LYMPHOCYTES 27.8 % (15-50); MCH 29.5 pg (26.0-34.0); MCHC 33.2 g/dL (31.0-37.0); MCV 88.8 fL (80.0-100.0); MEAN PLATELET VOLUME 10.8 fL (7.4-10.4); MONOCYTES 9.7 % (2-11); NEUTROPHILS 59.9 % (40-80); PLATELET COUNT 220 10x3/uL (130-400); RBC 4.47 10x6/uL (4.20-6.10); RDW 14.2 % (11.5-14.5); WBC 7.8 10x3/uL (4.8-10.8)
[2018-11-06 11:14] LABS: CALC OSMOLALITY 287 mosm/kg (275-300); CALCIUM 9.1 mg/dL (8.5-10.1); CARBON DIOXIDE 28.9 mmol/L (21.0-32.0); CHLORIDE - SERUM 108 mmol/L (98-107); CREATININE - SERUM 0.9 mg/dL (0.6-1.3); GLUCOSE 96 mg/dL (74-106); POTASSIUM - SERUM 4.7 mmol/L (3.5-5.1); SODIUM 143 mmol/L (136-145); UREA NITROGEN 20 mg/dL (7-18); eGFR NON AFRICAN AMERICAN 87 mL/min (90-120)
[2018-11-06 11:19] LABS: INR 2.13 (0.85-1.17); PROTIME 23.2 SECONDS (11.6-15.0)
--- NOTE | 2018-11-06 12:25 | NUR ---
PT RECEIVED VIA STRETCHER FROM COMMERCIAL DEVELOPMENT MANAGER POST CARDIOVERSION. CARDIOVERSION WAS SUCCESSFUL AFTER 1 SHOCK AT 275. HR 42, BP 111/60, O2 SAT 95 ON ROOM AIR. PT DENIES ANY PAIN OR DISCOMFORT. APPLE JUICE GIVEN. CALL LIGHT IN REACH, AT BEDSIDE. IV PATENT INFUSING VIA ORDERS TO L ARM. MONITORS ON.
--- NOTE | 2018-11-06 12:49 | NUR ---
HR 39, DR BRANNON IN TO SEE PT AND IS GOING TO SCHEDULING A PACEMAKER PLACEMENT. PT DENIES PAIN OR DISCOMFORT.
--- NOTE | 2018-11-06 13:15 | NUR ---
VERBAL ORDERS RECEIVED FOR ADMIT TO HAVE PACEMAKER PLACED TOMORROW. HUMAN RESOURCES OPERATIONS MANAGER CALLED TO REQUEST ROOM ON MED 11. PT AND INFORMED. SANDWICH TRAY SERVED. PT DENIES PAIN OR DISCOMFORT. CALL LIGHT IN REACH
--- NOTE | 2018-11-06 13:45 | NUR ---
PT DOING WELL, DISCHARGE INSTRUCTIONS REVIEWED W PT AND FOR CARDIOVERSION. BOTH VERBALIZED UNDERSTANDING. PT DENIES PAIN OR NEEDS AT THIS TIME. THEY ARE AWARE PT WILL BE ADMITTED OVERNIGHT FOR PACEMAKER PLACEMENT TOMORROW. HR REMAINS SUSI AT 42. BP 118/65. CALL LIGHT IN REACH.
--- NOTE | 2018-11-06 14:00 | NUR ---
DISCHARGE CRITERIA MET FOR RECOVERY. PT DOING WELL, JUST WAITING ON ROOM ON MED 2 FOR TRANSFER.
--- NOTE | 2018-11-06 15:45 | NUR ---
ROOM ON MED 2 READY, CALLED JEFF SNOW RN TO ASSUME CARE. PT TRANSFERRED BY WC TO ROOM 2127.
[2018-11-06 16:43] VITALS: BP 123/66; Ht 190.5 cm; Wt 129.5 kg
--- NOTE | 2018-11-06 19:49 | NUR ---
PT IN BED WATCHING TV. DENIES PAIN. NO COMPLAINTS OR CONCERNS NOTED. WATER GIVEN PER REQUEST. 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 NO S/S OF DISTRESS. CALL LIGHT IN REACH. WILL CONTINUE TO OBSERVE.
[2018-11-06 20:00] VITALS: BP 129/67
--- NOTE | 2018-11-07 00:18 | NUR ---
PT WITH EYES CLOSED AND CHEST RISING. NO S/S OF DISTRESS. CALL LIGHT IN REACH. WILL CONTINUE TO OBSERVE.
[2018-11-07 04:00] VITALS: BP 130/72
--- NOTE | 2018-11-07 06:37 | NUR ---
ECG COMPLETED. NO NEEDS OR CONCERNS MADE KNOWN.
--- NOTE | 2018-11-07 07:10 | NUR ---
PT RESTING IN BED, SHIFT ASSESSMENT PERFORMED. DENIES ANY NEEDS AT THIS TIME. WILL CONT TO FOLLOW POC
[2018-11-07 09:31] VITALS: BP 127/69
[2018-11-07 11:24] VITALS: BP 128/65
--- NOTE | 2018-11-07 13:10 | NUR ---
PT TAKEN TO MANAGER CLIENT. WILL BRENTON.
--- NOTE | 2018-11-07 20:00 | NUR ---
PATIENT ALERT AND ORIENTED WHEN ENTERING THE ROOM. HOB ELEVATED TO 30 DEGREE ANGLE. PATIENT DID NOT HAVE LEFT SLING ON WHEN ENTERING THE ROOM. EDUCATED PATIENT OF IMPORTANCE TO HAVE SLING. PATIENT VERBALIZED UNDERSTANDING AND THIS NURSE REAPPLIES SLING. LEFT AC THAT IS SALINE LOCKED AT THIS TIME. PATIENT SATURATION STABLE ON ROOM AIR. INCISION TO THE LEFT CHEST THAT IS COVERED WITH DRESSING THAT IS CLEAN DRY AND INTACT. DENIES PAIN OR DISCOMFORT AT THIS TIME. PERIPHERAL PULSES PALPABLE. CALL LIGHT IN REACH.
[2018-11-08] VITALS: BP 103/71
[2018-11-08 05:17] VITALS: BP 111/62
--- NOTE | 2018-11-08 06:10 | NUR ---
I have reviewed this patient and I concur with the Shift Assessment completed by the Licensed Practical Nurse today this shift.
--- NOTE | 2018-11-08 07:15 | NUR ---
ASSESSMENT DONE. DENIES NEEDS
[2018-11-08 08:25] VITALS: BP 131/86
[2018-11-08 11:33] VITALS: BP 129/71
--- NOTE | 2018-11-08 14:21 | NUR ---
I have reviewed this patient and I concur with the Shift Assessment completed by the Licensed Practical Nurse today this shift.
[2018-11-08 14:51] VITALS: BP 133/80
--- NOTE | 2018-11-08 15:00 | NUR ---
DC GIVEN TO PT
--- NOTE | 2018-11-08 15:30 | NUR ---
DC HOME PER PERSONAL CAR
--- NOTE | 2018-11-08 17:26 | MORECARE ---
CASE MANAGEMENT DISCHARGE SUMMARY PATIENT: YOLY MACKEY UNIT: [id number] ADM DATE: 11/06/18 AGE: 78 : 40 SEX: M ROOM/BED: D.7168 AUTHOR: SHENG,DOC PHYSICIAN: REFERRING PHYSICIAN: BILL BRANNON MD DATE OF SERVICE: 11/08/18 Discharge Plan Patient Name: YOLY MACKEY Facility: [facility]:[place] : 1940 Planned Disposition: Home or Self Care Anticipated Discharge Date: 11/08/18 Discharge Date: 11/08/2018 Expected LOS: 2 Initial Reviewer: [email or web address] Initial Review Date: 11/08/2018 Generated: 11/08/18 6:25 pm Comments DCP- Discharge Planning Updated by [email or web address]: Lucho Harrington on 11/08/18 4:[address] Patient Name: YOLY MACKEY Admission Status: Elective Accout number: [id number] Admission Date: 11-06-2018 : 1940 Admission Diagnosis:BRADYCARDIA, UNSPECIFIED Attending: ISAI BRANNON Current LOS: 2 Anticipated DC Date: 11-08-2018 Planned Disposition: Home or Self Care Primary Insurance: MEDICARE A & B Discharge Planning Comments: CM MET WITH PT IN ROOM TO DISCUSS DISCHARGE PLANNING AND NEEDS. PT REPORTS LIVING AT HOME INDEPENDENTLY WITH HIS . PT HAS CPAP FROM [facility]. PT HAS NO OUTSIDE SERVICES ASSISTING IN THE HOME. CM DISCUSSED AVAILABILITY OF HOME HEALTH, REHAB SERVICES AND MEDICAL EQUIPMENT. PT DENIES DISCHARGE NEEDS, REPORTS HIS WILL PICK HIM UP FOR DISCHARGE HOME. AGRICULTURAL RESEARCH DIRECTOR NURSE NOTIFIED. Tapper Bit: Lucho Harrington DCPIA - Discharge Planning Initial Assessment Updated by [email or web address]: Lucho Harrington on 11/08/18 5:23 pm * Is the patient Alert and Oriented? Yes * How many steps to enter\exit or inside your home? * PCP DR. PETERSEN * Pharmacy [facility] [address] * Preadmission Environment Home with Family * ADLs Independent * Equipment CPAP * Other Equipment [facility] - PROVIDER * List name and contact numbers for known caregivers / representatives who currently or will assist patient after discharge: SAPPHIRE MACKEY, SPOUSE, * Verbal permission to speak to the caregivers and representatives has been obtained from the patient. Yes * Community resources currently utilized None * Please name any agencies selected above. NONE * Additional services required to return to the preadmission environment? No * Can the patient safely return to the preadmission environment? Yes * Has this patient been hospitalized within the prior 30 days at any hospital? No Patient Name: YOLY MACKEY Page 10198 at 1726 All edits/amendments must be made on the electronic document DICTATION DATE: 11/08/181724 MECHANICAL SPREADER OPERATOR: [email or web address] 11/08/181724 RPT#: [id number] DC DATE:11/08/18 STATUS: DIS IN [facility] [address] [place] [address] END OF REPORT
--- NOTE | 2018-11-13 11:09 | OP ---
PATIENT NAME: YOLY MACKEY MEDICAL RECORD: [id number] :40 LOCATION:D.M2 D.2127 ADMISSION DATE:11/06/18 SURGEON: BILL BRANNON MD DATE OF OPERATION: 11/06/2018 PROCEDURE: DC cardioversion. INDICATION: Atrial fibrillation. PROCEDURE IN DETAIL: IV conscious sedation performed per anesthesia. Continuous heart rate, O2 saturation, blood pressure monitoring all undertaken, all of which remained stable. He received 1 shock restoring sinus rhythm. OVERALL IMPRESSION: Successful DC cardioversion from atrial fibrillation to sinus rhythm. TRANSINT:[id number] Voice Confirmation ID: [id number] DOCUMENT ID: [id number] BILL BRANNON MD at 1109 CC: [id number] DICTATION DATE: 11/06/18 1235 OPERATION MANAGER: 11/06/18 1256 DIS IN 11/08/18 [address] [address] [place] [address]
--- NOTE | 2018-11-15 08:42 | OP ---
PATIENT NAME: YOLY MACKEY MEDICAL RECORD: [id number] :40 LOCATION:D.M2 D.2127 ADMISSION DATE:11/06/18 SURGEON: BRITTNEY SMALLS MD DATE OF OPERATION: 11/07/2018 PROCEDURE: Lead portion of permanent pacemaker placement. INDICATION: Sick sinus syndrome with bradyarrhythmias with pauses. DESCRIPTION OF PROCEDURE: After left subclavian was cannulated via the modified Seldinger technique via Dr. Fernández first under fluoroscopic guidance, the RV lead was placed in the RV apex without difficulty. After R waves and thresholds were then obtained, I then, under fluoroscopic guidance, again placed a right atrial lead in right atrial appendage without any difficulty. After P waves and thresholds were obtained, leads were attached to appropriate poles of the generator and the pocket was closed via Dr. Fernández. IMPRESSION: Successful lead portion of permanent pacemaker placement. ESTIMATED BLOOD LOSS: Minimal. COMPLICATIONS: None. DISPOSITION: To the floor, stable. TRANSINT:[id number] Voice Confirmation ID: [id number] DOCUMENT ID: [id number] BRITTNEY SMALLS MD at 0842 CC: [id number] DICTATION DATE: 11/07/18 1414 NURSE AIDE EVALUATOR: 11/07/18 1440 DIS IN 11/08/18 [address] [address] [place] [address]
--- NOTE | 2018-12-11 13:38 | DS ---
PATIENT:YOLY MACKEY :40 MEDICAL RECORD: [id number] DISCHARGE SUMMARY ADMISSION DATE: 11/06/18 DISCHARGE DATE: 11/08/18 DATE OF SERVICE: 11/08/2018 DISCHARGE DIAGNOSES: 1. Sick sinus syndrome. 2. Status post pacemaker this admission. 3. Atrial fibrillation. 4. Status post cardioversion. HOSPITAL COURSE: Mr. Mackey presents with atrial fibrillation, underwent cardioversion of which resulted in severe bradycardia, underwent permanent pacemaker, discharged home with the re-addition of his sotalol to his medical regimen. Will follow up with [facility] in 1 month. TRANSINT:[id number] Voice Confirmation ID: [id number] DOCUMENT ID: [id number] BILL BRANNON MD at 1338 CC: [id number] DICTATION DATE: 12/04/181917 UTILITY HAND: 12/05/18 0206 DIS IN 11/08/18 [address] [place] [address]
== END 2018-11-08 15:30 | disposition home or self-care (01) | DRG 244 ==
LOC: D.CATH 10:15 → D.M2 15:54 → D.CATH 15:55 → D.M2 11-08 15:30
PROVIDERS: ADMIT Internal Medicine Interventional Cardiology; ATTEND Internal Medicine Interventional Cardiology
PROC: 02HK3JZ Insertion of Pacemaker Lead into Right Ventricle, Percutaneous Approach (ICD-10-PCS; 2018-11-07)
PROC: 02H63JZ Insertion of Pacemaker Lead into Right Atrium, Percutaneous Approach (ICD-10-PCS; 2018-11-07)
PROC: 0JH606Z Insertion of Pacemaker, Dual Chamber into Chest Subcutaneous Tissue and Fascia, Open Approach (ICD-10-PCS; principal; 2018-11-07 12:45)
DX: I48.91 Unspecified atrial fibrillation (principal); I49.5 Sick sinus syndrome; R00.1 Bradycardia, unspecified

== ENCOUNTER 2018-12-12 09:55 | Outpatient (CLI) | payer MEDICARE, OTHER ==
[~2018-12-12] VITALS: Ht 190.5 cm; Wt 129.5 kg
[~2018-12-12 09:55] MED LIST changes: +BETAPACE 80 MG80 MG PO; +COUMADIN5 MG PO; +MULTI-DAY VITAM1 TAB PO; +NORVASC10 MG PO; +PRAVACHOL40 MG PO
[2018-12-12] MEDS ORDERED: COUMADIN2.5 MG PO (10:38)
--- NOTE | 2018-12-12 10:43 | NUR ---
EKG COMPLETED, [employer] REP CALLED TO VERIFY DUE TO PT'S HR IN 30'S. 1100 [employer] REP HERE, PT'S LEAD IS NOT CAPTURING SO DR. BRANNON INFORMED AND WAITING ON ORDERS. 1215 DR BRANNON IN ROOM, DISCUSSED W PT ON HOLDING OFF ON CARDIOVERSION UNTIL LEAD REVISION CAN BE DONE. ORDERS RECEIVED FOR DISCHARGE. 1225 IV REMOVED W CATH INTACT, PT UP TO DRESS FOR DISCHARGE 1240 DISCHARGE INSTRUCTIONS REVIEWED W PT AND DISCUSSED A CALL WILL BE RECEIVED FROM OFFICE TO SCHEDULE THE LEAD REVISION. PT AMBULATED OUT W
[2018-12-12 10:54] VITALS: BP 111/61; Ht 190.5 cm; Wt 129.5 kg
[2018-12-12 11:14] LABS: CALC OSMOLALITY 283 mosm/kg (275-300); CALCIUM 9.3 mg/dL (8.5-10.1); CARBON DIOXIDE 27.8 mmol/L (21.0-32.0); CHLORIDE - SERUM 106 mmol/L (98-107); CREATININE - SERUM 0.9 mg/dL (0.6-1.3); GLUCOSE 100 mg/dL (74-106); POTASSIUM - SERUM 4.8 mmol/L (3.5-5.1); SODIUM 142 mmol/L (136-145); UREA NITROGEN 16 mg/dL (7-18); eGFR NON AFRICAN AMERICAN 87 mL/min (90-120)
[2018-12-12 11:23] LABS: INR 2.09 (0.85-1.17); PROTIME 22.8 SECONDS (11.6-15.0)
[2018-12-12 11:31] LABS: BASOPHILS 0.2 % (0-2); EOSINOPHILS 2.8 % (0-7); HEMATOCRIT 41.1 % (42.0-54.0); HEMOGLOBIN 13.8 g/dL (13.5-17.5); IMMATURE GRANULOCYTES 0.2 % (0-5); LYMPHOCYTES 26.7 % (15-50); MCH 29.6 pg (26.0-34.0); MCHC 33.6 g/dL (31.0-37.0); MEAN PLATELET VOLUME 11.3 fL (7.4-10.4); MONOCYTES 8.7 % (2-11); NEUTROPHILS 61.4 % (40-80); PLATELET COUNT 232 10x3/uL (130-400); RBC 4.67 10x6/uL (4.20-6.10); RDW 14.8 % (11.5-14.5); WBC 8.6 10x3/uL (4.8-10.8)
== END 2018-12-12 12:40 | disposition home or self-care (01) ==
LOC: D.CATH 09:55
PROVIDERS: ATTEND Internal Medicine Interventional Cardiology
DX: I48.91 Unspecified atrial fibrillation (principal)

== ENCOUNTER 2018-12-18 10:45 | Outpatient (CLI) | payer MEDICARE, OTHER ==
[~2018-12-18] VITALS: Ht 190.5 cm; Wt 129.5 kg
--- NOTE | ~2018-12-18 | HEMODYNAMI ---
PATIENT:YOLY MACKEY MEDICAL RECORD: [id number] : 40 LOCATION:D.CAT ADMISSION DATE: 12/18/18 Generatedon:12/18/201814:32 Patient name: YOLY MACKEY Patient #: [id number] SSN: [id number] : 1940 Date of study: 12/18/2018 Page: Of Hemodynamic Procedure Report Patient Data Patient Demographics Procedure consent was obtained First Name: YOLY Gender: Male Last Name: NARENDRA : 1940 [facility] Initial: ANASTASIA Age: 78 year(s) Patient #: [id number] Race: SSN: [id number] Additional ID: [id number] Contact details Address: [address] [place] [address] State: [place] City: [place] Zip code: [address] Past Medical History Allergies: No known allergies Admission Admission Data Admission Date: 12/18/2018 Admission Time: 10:45 Arrival Date: 12/18/2018 Arrival Time: 13:00 Admit Source: Other Insurance Payor: Private health insurance, Medicare [facility] #: [id number] Height (in.): 75.2 BSA: 2.56 (m2) Height (cm.): 191 BMI: 35.63 (kg/m2) Weight (lbs.): 286.6 Weight (kg.): 130 Lab Results Lab Result Date: 12/18/2018 Lab Result Time: 0:00 Biochemistry Name Units Result Min Max BUN mg/dl 26 --(----)-* 7 18 Creatinine l 0.8 -*(----)-- 21 215 Kinase CBC Name Units Result Min Max Hemoglobin g/dl 12.7 -*(----)-- 13.5 17.5 Procedure Procedure Types Cath Procedure Diagnostic Procedure PPM/ICD Permanent Pacer Lead Repos. Procedure Description Procedure Date Procedure Date: 12/18/2018 Procedure Start Time: 13:39 Procedure End Time: 14:28 Procedure Staff Name Function Pito Oglesby MD Performing Physician Patel Desouza MD Assisting physician Liz Crocker RT Monitor Lorelei Germain RT Monitor French Bran RN Nurse Michaela Pérez RT Scrub Procedure Data Cath Procedure Fluoroscopy Diagnostic fluoroscopy Total fluoroscopy dose: dose: 233.79 mGy 233.79 mGy Estimated blood loss: 5 ml Procedure Complications No complications Procedure Medications Medication Administration Route Dosage 0.9% NaCl I.V. 100 ml/hr Oxygen etCO2 Nasal cannula 2 l/min Lidocaine 1% added to field 20 Ancef (1Gm/50ml NS) I.V.P.B 1 g Ancef Irrigation 1 g (1gm/500ml NS) Versed I.V. 2 mg Fentanyl I.V. 100 mcg Versed I.V. 1 mg Hemodynamics Rest BSA: 2.56 (m2) HGB: 12.7 (g/dl) O2 Consumption: Estimated: 276.07 (ml/min) O2 Co nsumption indexed: Estimated:107.84 (ml/min/m) Heart Rate: 52 (bpm) Snapshots Pre Cath Intra NCS Post Cath Vital Signs Time Heart Resp SPO2 etCO2 NIBP Rhythm Pain Sedation Rate (ipm) (%) (mmHg) (mmHg) Status Level (bpm) 13:15:37 42 23 95 0 123/60(99) A-Flutter 0 (11) 10(A) , No pain 13:19:55 42 12 94 0 123/69(88) A-Flutter 0 (11) 10(A) , No pain 13:24:13 44 19 93 0 111/64(93) A-Flutter 0 (11) 10(A) , No pain 13:28:27 42 16 94 24.7 110/65(90) A-Flutter 0 (11) 10(A) , No pain 13:32:43 39 12 94 33 100/60(81) A-Flutter 0 (11) 10(A) , No pain 13:36:53 37 15 94 30.8 113/63(87) A-Flutter 0 (11) 10(A) , No pain 13:41:09 43 14 94 31.5 105/62(84) A-Flutter 0 (11) 9(A) , No pain 13:45:19 48 12 92 27 105/63(79) A-Flutter 0 (11) 9(A) , No pain 13:49:33 41 15 93 29.2 102/59(77) A-Flutter 0 (11) 9(A) , No pain 13:53:45 34 16 93 28.5 97/60(75) Paced 0 (11) 9(A) , No pain 13:57:46 78 17 94 30.7 113/80(92) Paced 0 (11) 9(A) , No pain 14:02:12 88 15 93 25.5 95/32(83) A-Flutter 0 (11) 9(A) , No pain 14:06:21 33 18 93 23.2 102/60(87) A-Flutter 0 (11) 9(A) , No pain 14:10:32 39 19 93 27.7 118/58(80) Paced 0 (11) 9(A) , No pain 14:14:44 78 11 93 29.2 101/74(91) Paced 0 (11) 9(A) , No pain 14:18:52 75 17 95 29.2 111/70(91) NSR 0 (11) 9(A) , No pain 14:23:02 91 18 96 27.7 113/81(92) NSR 0 (11) 10(A) , No pain 14:27:14 89 15 96 23.2 124/75(84) NSR 0 (11) 10(A) , No pain Medications Time Medication Route Dose Verified Delivered Reason Notes Effec tiveness by by 13:27:52 0.9% NaCl I.V. 100 French French Per ml/hr Yina Bran physician RN RN 13:28:02 Oxygen etCO2 2 l/min French French for low 02 Nasal Yina Bran sats cannula RN RN 13:28:21 Lidocaine added 20ml French French for local 1% to vial(x2) Yina Bran anesthetic field RN RN 13:28:35 Ancef I.V.P.B 1 g French French Per (1Gm/50ml Yina Bran physician NS) KYE RN 13:29:05 Ancef Topical 1 g French French used for Irrigation ( added Yina Bran procedure (1gm/500ml to RN KYE NS) field) 13:39:28 Versed I.V. 2 mg French French for Lorigan Lormohsen sedation RN RN 13:39:37 Fentanyl I.V. 100 mcg French French for Lormohsen Bran sedation RN RN 13:40:43 Versed I.V. 1 mg French French for Lorigan Lormohsen sedation RN learning center instructor Log Time Note 12:47:22 Informed consent obtained and on chart 12:53:46 Arrival Date: 12/18/2018 1:00:00 PM 12:54:51 Insurance Payor : Private health insurance, Medicare 12:55:10 Patient Height : 75.2 inches 12:55:17 Patient Weight : 286.6 lbs 12:55:41 Diagnostic Cath Status : Elective 12:55:45 PCI Cath Status : Elective 12:59:37 Admit Source: Other 12:59:58 Procedure Status PPM/ Gen Change/ Lead Revision/ Temp. 13:00:03 French Bran RN sent for patient. Start room use. 13:00:08 Time tracking: Regular hours (M-F 7:00 - 5:00) 13:00:16 Plan of Care:Hemodynamics will remain stable., Cardiac rhythm will remain stable., Comfort level will be maintained., Respiratory function will remain adequate., Patient/ family verbilizes understanding of procedure., Procedure tolerated without complication., Recovers from procedure without complications.. 13:02:18 Lab Result : Hemoglobin 12.7 g/dl 13:02:18 Lab Result : Creatinine Kinase 0.8 l 13:02:18 Lab Result : BUN 26 mg/dl 13:04:40 Use device set Radial Dx or PCI 13:06:21 Patient received from Pre/Post Procedure Room to CCL 3 Alert and oriented. Tansferred to table in Supine position. 13:06:39 Warm blankets applied, and migel hugger turned on for patient comfort. 13:06:40 Correct patient and procedure confirmed by team. 13:06:46 ECG and BP/O2 sat monitors applied to patient. 13:14:18 Vital chart was started 13:15:13 Baseline sample Acquired. 13:16:13 Rhythm: paced, atrial fibrillation 13:16:17 Full Disclosure recording started 13:16:18 - 13:17:03 H&P Date Dictated: 12/18/2018 H&P Addendum completed by physician on day of procedure. (MUST COMPLETE FOR ALL OUTPATIENTS), New H&P dictated by physician.. 13:17:06 Pre-procedure instructions explained to patient. 13:17:07 Pre-op teaching completed and patient verbalized understanding. 13:17:56 Family in waiting room. 13:18:01 Patient NPO since Midnight. 13:18:24 Patient allergic to No known allergies 13:20:42 Is the patient allergic to Iodine/contrast media? No. 13:20:45 Was the patient premedicated? No 13:20:47 Is patient on blood thinner?Yes/warfarin on 12/14/2018 13:20:57 Patient diabetic? Yes. 13:21:00 If diabetic: On Metformin? Yes 13:22:10 If on Metformin: Last Dose? 12/18/2018 13:23:10 ----Pre-sedation anethsthesia assessment.---- 13:23:16 Previous problem with sedation/anesthesia? No ? 13:23:18 Snore? Yes 13:23:20 Sleep apnea? Yes 13:23:22 Deviated septum? No 13:23:23 Opens mouth fully? Yes 13:23:25 Sticks out tongue? Yes 13:24:20 Airway obstruction? No ? 13:24:26 Dentures? No ? 13:24:43 Patient pain scale 0/10 ?. 13:24:52 IV patent on arrival in right forearm with 0.9% NaCl at [facility]. 13:25:00 Lab results completed and on chart. 13:25:11 Left chest area was prepped with chlora-prep and draped in sterile fashion 13:25:13 Alarms reviewed by R. N. 13:25:14 Sharps counted by scrub and verified by R.N. 13:26:56 [employer] community health program representative CHEYENNE GILL present for procedure. 13:27:52 0.9% NaCl 100 ml/hr I.V. was administered by French Bran RN; Per physician; Verbal order read back and verified. 13:28:02 Oxygen 2 l/min etCO2 Nasal cannula was administered by French Bran RN; for low 02 sats; Verbal order read back and verified. 13:28:21 Lidocaine 1% 20ml vial(x2) added to field was administered by French Bran RN; for local anesthetic; Verbal order read back and verified. 13:28:35 Ancef (1Gm/50ml NS) 1 g I.V.P.B was administered by French Bran RN; Per physician; Verbal order read back and verified. 13:29:05 Ancef Irrigation (1gm/500ml NS) 1 g Topical ( added to field) was administered by French Bran RN; used for procedure; Verbal order read back and verified. 13:29:50 Use device set MARGARET PPM 13:29:57 2-0 Ticron Multipack ([id number]) opened to sterile field. 13:29:58 3-0 Vicryl Single Pack [id number] opened to sterile field. 13:29:59 5-0 Monocryl PS2 [id number] opened to sterile field. 13:30:02 Cautery Tip General Merchandise Salesperson opened to sterile field. 13:30:03 Cautery Pushbutton Pencil opened to sterile field. 13:30:04 Mepilex Dressing ([id number]) opened to sterile field. 13:30:07 Immobilizer Extra Large opened to sterile field. 13:35:55 Physician arrived 13:35:56 --------ALL STOP TIME OUT------ 13:35:57 Final Timeout: patient, procedure, and site verified with staff and physician. All members of the team are in agreement. 13:36:07 Left chest site verified by team. 13:36:39 Fire Safety Assessment: A--An alcohol-based skin anteseptic being used preoperatively., B--The operative or invasive procedure is being performed above the xiphoid process or in the oropharynx., D--An ESU, laser, or fiber-optic light is being used., E--There are other possible contributors. 13:37:18 Physical assessment completed. ASA score P 2 - A patient with mild systemic disease as per Pito Oglesby MD. 13:37:33 Sedation plan: IV Moderate Sedation Medication:Versed, Fentanyl 13:37:43 Procedure started. 13:38:52 Pre sharps counted by scrub and verified by RN: Sutures: 7; Sponges: 5; Stick needles: 2; Skin needles: 2; Blade: 1; Cautery: 1 13:38:58 Grounding pad site Left thigh. 13:39:16 Grounding pad site free from injury. 13:39:28 Versed 2 mg I.V. was administered by French Bran RN; for sedation; Verbal order read back and verified. 13:39:32 Lidocaine 1% was administered to left subclavicular area by Patel Desouza MD . 13:39:37 Fentanyl 100 mcg I.V. was administered by French Bran RN; for sedation; Verbal order read back and verified. 13:39:39 Incision made to left subclavicular area. 13:40:43 Versed 1 mg I.V. was administered by French Bran RN; for sedation; Verbal order read back and verified. 13:42:00 Generator pocket made/opened. 13:45:46 Procedure type changed to Cath procedure, Diagnostic procedure, PPM/ICD , Permanent Pacer Lead Repos. 13:53:46 Ventricular lead repositioned. 13:54:04 Ventricular lead attachment was completed with 2-0 ticron. 13:54:21 PPM Dual was attached to lead(s) and inserted into pocket. 13:54:35 Generator was sutured in place with 2-0 ticron. 13:56:16 Parameters--Ventricular P/R Wave: 7.5mV. Current: 0.4mA; Threshold: 0.1V; Impedence: 900OHMS. 13:56:25 Device pocket was irrigated with Ancef. 13:56:44 Subcutaneous closure was completed with 3-0 vicryl plus. 14:04:46 PPM not capturing; preparing to adjust lead position again 14:05:31 Subcutaneous Sutures removed. 14:05:47 Ventricular lead is repositioned. 14:16:06 Ventricular lead attachment was completed with 2-0 ticron. 14:16:15 PPM Dual was attached to lead(s) and inserted into pocket. 14:16:26 Subcutaneous closure was completed with 3-0 vicryl plus. 14:19:11 Skin closure was completed with 5-0 monocryl. 14:24:30 Lt Chest incision was dressed with Mepilex dressing. 14:24:44 Procedure ended.(Physican Out) 14:25:32 Fluoroscopy dose: 233.79 mGy 14:26:43 Flurop Dose total: 233.79 14:26:54 Dose Area Product 2639.23 mGy/cm. 14:27:03 Sharps counted by scrub and verified by R.N. 14:27:06 Insertion/operative site no bleeding no hematoma. 14:27:17 Post-op/insertion site Left Chest area dressed using a Mepilex dressing . 14:27:33 Post procedure rhythm: paced 14:27:39 Estimated blood loss: 5 ml 14:27:42 Post procedure instruction explained to patient.Patient verbalizes understanding. 14::44 Patient needs reinforcement of post procedure teaching. 14:27:49 Procedure and supply charges have been captured, reviewed, submitted an d are correct. 14:27:59 Procedure Complication : No complications 14:28:08 Vital chart was stopped 14:28:09 See physician's report for complete and final results. 14:28:12 Report given to Pre/Post Procedure Room. 14:28:19 Patient transfered to Pre/Post Procedure Room with Stretcher. 14:28:39 Procedure ended. 14:28:39 Full Disclosure recording stopped 14:28:46 End room use (Document Last) Device Usage Item Name Manufacture Quantity Catalog Hospital Part Current Minimal Lot# / Number Charge Number Stock Stock Serial# Code 2-0 Ticron Ethicon 4 [id number] 70570 [id number] 5 Multipack ([id number]) 3-0 Vicryl Ethicon 1 [id number] 5 Single Pack [id number] 5-0 Monocryl Ethicon 1 [id number] 780110 113511 5 PS2 Y495G Cautery Tip Microtek 1 [id number] 679394 723031 [id number] 5 General Merchandise Salesperson [employer] Cautery Microtek 1 [id number] 82053 [id number] 5 Pushbutton [employer] Pencil Mepilex Cardinal 1 [id number] 734211 870001 793854 5 Dressing Health (281922) Immobilizer Cardinal 1 [id number] 606006 5 Extra Large Health Signature Audit [place] Stage Time Signature Unsigned Intra-Procedure 12/18/2018 Lorelei 2:30:30 PM Marcellus RT(R) (CV) Intra-Procedure 12/18/2018 French 2:31:04 PM Yina FISHMAN Intra-Procedure 12/18/2018 Pito Biswas 2:32:03 PM Rizwan [facility] [address] [place] [address]
[~2018-12-18 10:45] MED LIST changes: +COUMADIN2.5 MG PO
[2018-12-18 11:15] VITALS: BP 111/53; Ht 190.5 cm; Wt 129.5 kg
[2018-12-18 11:42] LABS: HEMATOCRIT 38.8 % (42.0-54.0); HEMOGLOBIN 12.7 g/dL (13.5-17.5); MCH 29.5 pg (26.0-34.0); MCHC 32.7 g/dL (31.0-37.0); RBC 4.31 10x6/uL (4.20-6.10); RDW 14.7 % (11.5-14.5); WBC 6.9 10x3/uL (4.8-10.8)
[2018-12-18 11:53] LABS: CALC OSMOLALITY 289 mosm/kg (275-300); CALCIUM 8.5 mg/dL (8.5-10.1); CARBON DIOXIDE 25.6 mmol/L (21.0-32.0); CHLORIDE - SERUM 108 mmol/L (98-107); CREATININE - SERUM 0.8 mg/dL (0.6-1.3); GLUCOSE 101 mg/dL (74-106); POTASSIUM - SERUM 4.4 mmol/L (3.5-5.1); SODIUM 143 mmol/L (136-145); UREA NITROGEN 26 mg/dL (7-18); eGFR NON AFRICAN AMERICAN > 90 mL/min (90-120)
[2018-12-18 13:28] LABS: INR 1.29 (0.85-1.17); PROTIME 15.6 SECONDS (11.6-15.0)
[2018-12-18 13:29] LABS: APTT 30.9 SECONDS (22.8-39.4)
--- NOTE | 2018-12-18 15:45 | NUR ---
PT HAS TOLERATED SANDWICH AND PO FLUIDS WITH NO NAUSEA. DRESSING CDI. SLING INTACT L ARM. RADIAL PULSE PALPABLE, PT DENIES ANY NV DEFICIT. ALERT AND VISITING WITH FAMILY IN THE ROOM, HR PACED AT 60, BP IS 134/44.
--- NOTE | 2018-12-18 15:48 | NUR ---
1451 RECEIVED PT FROM CUSTOMS ENTRY CLERK. PT IS ALERT, DRESSING CDI LEFT UPPER CHEST. LEFT ARM IN SLING IMMOBILIZER. HR PACED AT 60, BP IS 110/59. AT BEDSIDE, CALL LIGHT IN REACH. 1515 SANDWICH AND PO FLUIDS SERVED. DRESSING CDI. PT DENIES ANY C/O. DR SMALLS HAS ROUNDED ON PT.
[2018-12-18] MEDS ORDERED: HYDROCODON-ACE1 EA10 PO (16:00)
--- NOTE | 2018-12-18 16:49 | NUR ---
1620 IV DC'D WITH CATH INTACT AND NURSE ASSISTED PT WITH DRESSING FOR HOME. DRESSING REMAINS CDI, SLING TO LEFT ARM. RADIAL PULSE PALPABLE. PT DENIES ANY NV DEFICIT TO LEFT ARM. 1635 DC INSTRUCTIONS REVIEWED WITH PT AND WHO VERBALIZE UNDERSTANDING. NORCO PRESCRIPTION AND MED COUNSELOR SHEETS TO PT. PT ESCORTED TO PRIVATE AUTO VIA WC BY NURSE WITH FAMILY MEMBER DRIVING HIM HOME. PT HAS ALL PERSONAL BELONGINGS AND DC INSTRUCTIONS AT TIME OF DISCHARGE.
--- NOTE | 2018-12-20 13:56 | OP ---
PATIENT NAME: YOLY MACKEY MEDICAL RECORD: [id number] :40 LOCATION:D.CAT ADMISSION DATE: SURGEON: BRITTNEY SMALLS MD DATE OF OPERATION: 12/18/2018 PROCEDURE: Right ventricular lead revision. INDICATION: Migration of right ventricular lead. DESCRIPTION OF PROCEDURE: After left subclavian pocket was reopened via Dr. Desouza under fluoroscopic guidance, I repositioned the lead into the RV apex without difficulty. We had thresholds down to 0.1 with R waves of 8. The lead was then reattached to the ventricular pole on the generator and the pocket was closed via Dr. Desouza. IMPRESSION: Successful lead revision. COMPLICATIONS: None. ESTIMATED BLOOD LOSS: Minimal. DISPOSITION: To the floor, stable. TRANSINT:[id number] Voice Confirmation ID: [id number] DOCUMENT ID: [id number] BRITTNEY SMALLS MD at 1356 CC: [id number] DICTATION DATE: 12/18/18 1403 RESISTOR TESTER: 12/18/187 DEP CLI 12/18/18 [facility] [address] [place] [address]
--- NOTE | 2018-12-21 08:22 | OP ---
PATIENT NAME: YOLY MACKEY MEDICAL RECORD: [id number] :40 LOCATION:D.CAT ADMISSION DATE: SURGEON: MARY ROBLES MD DATE OF OPERATION: 12/18/2018 PREOPERATIVE DIAGNOSES: 1. Displaced ventricular lead. 2. Sick sinus syndrome with pauses. POSTOPERATIVE DIAGNOSES: 1. Displaced ventricular lead. 2. Sick sinus syndrome with pauses. PROCEDURE: Left subclavian vein ventricular lead revision. SURGEON: Mary Robles MD CO-SURGEON: Pito Alexander MD REPORT OF PROCEDURE: The patient's left chest was prepped and draped in the sterile fashion. A 10 mL of 1% lidocaine with epinephrine was infused into the surrounding tissues. The transverse incision was made overlying the indwelling pacemaker. The sutures were released and the pacemaker was eviscerated through the wound. The V-lead was dissected from the surrounding tissues. The V-lead was detached and at this point, Dr. Alexander manipulated the V lead until it was positioned and functioning appropriately in the ventricle. The lead was then sutured into place with a 0-Ti-Cron. The lead was affixed to the pacemaker and the pacemaker with leads was placed into the subcutaneous pouch. This was sutured to the pectoral fascia using a single interrupted 0-Ti-Cron. The subcutaneous tissues were irrigated out with antibiotic solution and then reapproximated with interrupted 3-0 Vicryl. The skin was closed with running subcutaneous 5-0 Monocryl and dressed appropriately. COMPLICATIONS: None. CONDITION: Stable. ANESTHESIA: Local MAC. BLOOD LOSS: Minimal. TRANSINT:[id number] Voice Confirmation ID: [id number] DOCUMENT ID: [id number] MARY ROBLES MD at 0822 CC: [id number] DICTATION DATE: 12/18/18 1431 SHAMPOO ASSISTANT: 12/18/181 DEP CLI 12/18/18 [id number] [place] [address]
== END 2018-12-18 16:35 | disposition home or self-care (01) ==
LOC: D.CATH 10:45
PROVIDERS: ATTEND Internal Medicine Interventional Cardiology
DX: T82.120A Displacement of cardiac electrode, initial encounter (principal); I49.5 Sick sinus syndrome; Z95.0 Presence of cardiac pacemaker